=== PATIENT | female | born 1965 | race Caucasian/White ===

== ENCOUNTER → 2017-10-10 | Outpatient (CLI) | payer MEDICAID ==
[2017-10-10 14:01] LABS: Basophils # (A) 0.1 k/uL (0-0.2); Basophils % (A) 1 %; Eosinophils # (A) 0.2 k/uL (0-0.7); Eosinophils % (A) 2 %; HCT 44.6 % (34.0-46.0); HGB 14.6 gm/dL (11.4-16.0); Lymphocytes # (A) 1.6 k/uL (1.0-4.8); Lymphocytes % (A) 22 %; MCH 28.6 pg (25.0-35.0); MCHC 32.8 g/dL (31.0-37.0); MCV 87.2 fL (80.0-100.0); Mean Platelet Volume 7.3; Monocytes # (A) 0.3 k/uL (0-1.0); Monocytes % (A) 4 %; Neutrophils # (A) 5.1 k/uL (1.3-7.7); Neutrophils % (A) 70 %; Platelet Count 218 k/uL (150-450); RBC 5.11 m/uL (3.80-5.40); RDW 14.6 % (11.5-15.5); WBC 7.3 k/uL (3.8-10.6)
[2017-10-10 14:39] LABS: ALT 31 U/L (9-52); AST 19 U/L (14-36); Albumin 4.6 g/dL (3.5-5.0); Alkaline Phosphatase 72 U/L (38-126); Anion Gap 11 mmol/L; Blood Urea Nitrogen 17 mg/dL (7-17); Carbon Dioxide 32 mmol/L (22-30); Chloride 100 mmol/L (98-107); Glucose 91 mg/dL (74-99); Potassium 3.7 mmol/L (3.5-5.1); Sodium 143 mmol/L (137-145); Total Bilirubin 0.4 mg/dL (0.2-1.3); Total Protein 7.6 g/dL (6.3-8.2)
[2017-10-10 14:52] LABS: T4, Free (Free Thyroxine) 1.84 ng/dL (0.78-2.19)
--- NOTE | 2017-10-14 08:56 | MM ---
Reason for exam: screening (asymptomatic). Last mammogram was performed 1 year and 1 month ago. History: Family history of breast cancer in maternal aunt at age 71. Taking hormonal contraceptives for 14 years beginning at age 16. Physical Findings: A clinical breast exam by your physician is recommended on an annual basis and results should be correlated with mammographic findings. MG Screening Mammo w CAD Bilateral CC and MLO view(s) were taken. Prior study comparison: August 27, 2016, bilateral MG screening mammo w CAD. August 22, 2015, bilateral MG screening mammo w CAD. There are scattered fibroglandular densities. There is chronic nodularity in the left breast. No significant changes when compared with prior studies. ASSESSMENT: Negative, BI-RAD 1 RECOMMENDATION: Routine screening mammogram of both breasts in 1 year.
== END | disposition home or self-care (01) ==
LOC: RADMAMWWP 13:21
PROVIDERS: ATTEND Family Medicine
DX: Z12.31 Encounter for screening mammogram for malignant neoplasm of breast (principal); E03.9 Hypothyroidism, unspecified
CPT/HCPCS: 36415; 77067; 80053; 84439; 84443; 85025

== ENCOUNTER → 2018-02-04 | Outpatient (CLI) | payer MEDICAID ==
[2018-02-04 10:54] LABS: T4, Free (Free Thyroxine) 1.39 ng/dL (0.78-2.19)
== END | disposition home or self-care (01) ==
LOC: LABWHC1 09:41
PROVIDERS: ATTEND Family Medicine
DX: E03.9 Hypothyroidism, unspecified (principal)
CPT/HCPCS: 36415; 84439; 84443

== ENCOUNTER → 2018-03-10 | Outpatient (CLI) | payer MEDICAID ==
[2018-03-10 12:09] LABS: T4, Free (Free Thyroxine) 1.76 ng/dL (0.78-2.19)
== END | disposition home or self-care (01) ==
LOC: LABWHC1 09:16
PROVIDERS: ATTEND Family Medicine
DX: E03.9 Hypothyroidism, unspecified (principal)
CPT/HCPCS: 36415; 84439; 84443

== ENCOUNTER → 2018-12-12 | Outpatient (CLI) | payer MEDICAID ==
[2018-12-12 16:33] LABS: Albumin 4.7 g/dL (3.80-4.90); Albumin/Globulin Ratio 1.96 (1.60-3.17); Anion Gap 4.3 mmol/L (4.00-12.00); Carbon Dioxide 31.7 mmol/L (21.6-31.8); Globulin 2.4 g/dL (1.6-3.3); LDL Cholesterol,Calculated 70.2 mg/dL (0.0-131.0); Potassium 4.2 mmol/L (3.5-5.5); Total Bilirubin 0.4 mg/dL (0.3-1.2); Total Protein 7.1 g/dL (6.2-8.2); VLDL Calculation 14.8 mg/dL (5.00-40.00)
[2018-12-12 16:41] LABS: T4, Free (Free Thyroxine) 1.5 ng/dL (0.80-1.80)
== END | disposition home or self-care (01) ==
LOC: LABWHC1 10:44
PROVIDERS: ATTEND Family Medicine
DX: E03.9 Hypothyroidism, unspecified (principal); E78.00 Pure hypercholesterolemia, unspecified; I10 Essential (primary) hypertension
CPT/HCPCS: 36415; 80053; 80061; 84439; 84443

== ENCOUNTER → 2019-01-05 | Outpatient (CLI) | payer MEDICAID ==
--- NOTE | 2019-01-06 11:37 | MM ---
Reason for exam: screening (asymptomatic). Last mammogram was performed 1 year and 3 months ago. History: Family history of breast cancer in maternal aunt at age 71. Taking hormonal contraceptives for 14 years beginning at age 16. Physical Findings: A clinical breast exam by your physician is recommended on an annual basis and results should be correlated with mammographic findings. MG Screening Mammo w CAD Bilateral CC and MLO view(s) were taken. Prior study comparison: October 10, 2017, bilateral MG screening mammo w CAD. August 27, 2016, bilateral MG screening mammo w CAD. The breast tissue is heterogeneously dense. This may lower the sensitivity of mammography. There is no discrete abnormality. ASSESSMENT: Negative, BI-RAD 1 RECOMMENDATION: Routine screening mammogram of both breasts in 1 year.
== END ==
LOC: RADMAMWWP 09:23
PROVIDERS: ATTEND Family Medicine
DX: Z12.31 Encounter for screening mammogram for malignant neoplasm of breast (principal)
CPT/HCPCS: 77067

== ENCOUNTER → 2019-01-16 | Outpatient (CLI) | payer MEDICAID ==
[2019-01-16 17:11] LABS: T4, Free (Free Thyroxine) 1.1 ng/dL (0.80-1.80)
== END | disposition home or self-care (01) ==
LOC: LABWHC1 10:00
PROVIDERS: ATTEND Family Medicine
DX: E03.9 Hypothyroidism, unspecified (principal)
CPT/HCPCS: 36415; 84439; 84443

== ENCOUNTER → 2020-03-06 | Outpatient (CLI) | payer MEDICAID ==
[2020-03-06 17:54] LABS: African American GFR (CKD) 95.5 (60.0-200.0); Albumin 4.7 g/dL (3.80-4.90); Albumin/Globulin Ratio 2.04 (1.60-3.17); Anion Gap 8.8 mmol/L (4.00-12.00); Calcium 9.5 mg/dL (8.7-10.3); Carbon Dioxide 26.2 mmol/L (21.6-31.8); Chol/HDL Ratio 3.18; Globulin 2.3 g/dL (1.6-3.3); LDL Cholesterol,Calculated 106.8 mg/dL (0.0-131.0); Non-African American GFR(CKD) 82.4 (60.0-200.0); Total Bilirubin 0.5 mg/dL (0.3-1.2); VLDL Calculation 28.2 mg/dL (5.00-40.00)
[2020-03-06 18:02] LABS: T4, Free (Free Thyroxine) 1.4 ng/dL (0.80-1.80)
== END | disposition home or self-care (01) ==
LOC: LABWHC1 10:32
PROVIDERS: ATTEND Family Medicine
DX: Z00.00 Encounter for general adult medical examination without abnormal findings (principal); I10 Essential (primary) hypertension; E03.9 Hypothyroidism, unspecified; D55.9 Anemia due to enzyme disorder, unspecified
CPT/HCPCS: 36415; 80053; 80061; 82306; 84439; 84443

== ENCOUNTER 2020-04-25 19:17 | Observation (INO) | payer MEDICAID ==
[2020-04-25] MEDS ORDERED: MORPHINE SULFATE 4 MG/ML SYRINGE IV STA (19:43)
[2020-04-25] MEDS ORDERED: ASPIRIN 81 MG PO STA (19:43)
[2020-04-25] MEDS ORDERED: methylPREDNISolone SOD SUCCI 125 MG/2 ML VIAL IV STA (19:51)
[2020-04-25] MEDS ORDERED: FAMOTIDINE 20 MG/2 ML VIAL IV STA (19:51)
[2020-04-25] MEDS ORDERED: diphenhydrAMINE 50 MG/ML 1 ML VIAL IVP STA (19:51)
--- NOTE | 2020-04-25 19:51 | ED ---
General Adult HPI - General Chief complaint: Chest Pain Stated complaint: Chest Pain Time Seen by Provider: 04/25/20 19:36 Source: patient, RN notes reviewed Mode of arrival: ambulatory Limitations: no limitations - History of Present Illness Initial comments: Patient is a pleasant 54-year-old female presenting to the emergency Department with complaints of chest discomfort. Onset of symptoms was around 2 hours ago. Discomfort is 3 or 4/10. Discomfort feels somewhat sharp. Discomfort is underneath the left breast and does also involve the back. Discomfort is somewhat positional. No dyspnea. Patient was mildly nauseated earlier. No diaphoresis. Patient has no history of similar symptoms previously. No leg pain or leg swelling. Patient was sitting at her desk with onset of symptoms - Related Data Allergies Allergy/AdvReac Type Severity Reaction Status Date / Time shellfish derived [Shellfish] Allergy Anaphylaxis Verified 04/25/20 19:31 Review of Systems ROS Statement: Those systems with pertinent positive or pertinent negative responses have been documented in the HPI. ROS Other: All systems not noted in ROS Statement are negative. Constitutional: Denies: fever Eyes: Denies: eye pain ENT: Denies: ear pain Respiratory: Denies: cough, dyspnea Cardiovascular: Reports: as per HPI, chest pain Endocrine: Denies: fatigue Gastrointestinal: Reports: as per HPI, nausea. Denies: abdominal pain, vomiting Genitourinary: Denies: dysuria Musculoskeletal: Reports: back pain Skin: Denies: rash Neurological: Denies: weakness Past Medical History Past Medical History: Fibromyalgia History of Any Multi-Drug Resistant Organisms: None Reported Past Surgical History: No Surgical Hx Reported Past Psychological History: No Psychological Hx Reported Smoking Status: Current every day smoker Past Alcohol Use History: Daily Past Drug Use History: None Reported General Exam Limitations: no limitations General appearance: alert, in no apparent distress Head exam: Present: normocephalic Eye exam: Present: normal appearance Neck exam: Present: normal inspection Respiratory exam: Present: normal lung sounds bilaterally. Absent: chest wall tenderness Cardiovascular Exam: Present: regular rate, normal rhythm Expanded Peripheral pulses: 2+: Radial (R), Radial (L), Posterior Tibialis (R), Posterior Tibialis (L), Dorsalis Pedis (R), Dorsalis Pedis (L) GI/Abdominal exam: Present: soft. Absent: distended, tenderness Extremities exam: Present: normal inspection. Absent: pedal edema, calf tenderness Back exam: Present: tenderness (Mild tenderness left parathoracic region) Neurological exam: Present: alert. Absent: motor sensory deficit Psychiatric exam: Present: normal affect, normal mood Skin exam: Present: normal color Course Vital Signs 04/25/20 04/25/20 04/25/20 19:29 19:50 20:00 Temperature 98.6 F Pulse Rate 101 H 100 Respiratory 20 20 15 Rate Blood Pressure 127/76 121/70 121/70 O2 Sat by Pulse 98 98 Oximetry 04/25/20 20:10 Temperature Pulse Rate 91 Respiratory 19 Rate Blood Pressure 128/82 O2 Sat by Pulse 97 Oximetry EKG Findings - EKG Comments: EKG Findings:: Normal sinus rhythm 91. PA 160. QRS 86. QT 356. QTc 437. Normal axis. Normal QRS. No acute ST change. Medical Decision Making - Medical Decision Making Patient reevaluated. Patient and family updated. Case discussed with Dr. Alvarez, who will admit covered for Dr. Lunsford. He is aware of computed tomography scan pending. - Lab Data Result diagrams: 04/25/20 19:47 04/25/20 19:47 Lab Results 04/25/20 04/25/20 04/25/20 Range/Units 19:47 19:47 19:47 WBC 8.1 (3.8-10.6) k/uL RBC 4.92 (3.80-5.40) m/uL Hgb 15.0 (11.4-16.0) gm/dL Hct 43.2 (34.0-46.0) % MCV 87.7 (80.0-100.0) fL MCH 30.4 (25.0-35.0) pg MCHC 34.6 (31.0-37.0) g/dL RDW 13.6 (11.5-15.5) % Plt Count 218 (150-450) k/uL Neutrophils % 63 % Lymphocytes % 25 % Monocytes % 6 % Eosinophils % 4 % Basophils % 1 % Neutrophils # 5.1 (1.3-7.7) k/uL Lymphocytes # 2.1 (1.0-4.8) k/uL Monocytes # 0.5 (0-1.0) k/uL Eosinophils # 0.3 (0-0.7) k/uL Basophils # 0.0 (0-0.2) k/uL PT 9.6 (9.0-12.0) sec INR 0.9 (<1.2) APTT 23.8 (22.0-30.0) sec Sodium 138 (137-145) mmol/L Potassium 3.3 L (3.5-5.1) mmol/L Chloride 101 (98-107) mmol/L Carbon Dioxide 26 (22-30) mmol/L Anion Gap 11 mmol/L BUN 18 H (7-17) mg/dL Creatinine 0.79 (0.52-1.04) mg/dL Est GFR (CKD-EPI)AfAm >90 (>60 ml/min/1.73 sqM) Est GFR (CKD-EPI)NonAf 85 (>60 ml/min/1.73 sqM) Glucose 102 H (74-99) mg/dL Calcium 9.6 (8.4-10.2) mg/dL Magnesium 2.1 (1.6-2.3) mg/dL Total Bilirubin 0.3 (0.2-1.3) mg/dL AST 24 (14-36) U/L ALT 14 (4-34) U/L Alkaline Phosphatase 113 (38-126) U/L Troponin I (0.000-0.034) ng/mL Total Protein 7.9 (6.3-8.2) g/dL Albumin 4.9 (3.5-5.0) g/dL 04/25/20 Range/Units 19:47 WBC (3.8-10.6) k/uL RBC (3.80-5.40) m/uL Hgb (11.4-16.0) gm/dL Hct (34.0-46.0) % MCV (80.0-100.0) fL MCH (25.0-35.0) pg MCHC (31.0-37.0) g/dL RDW (11.5-15.5) % Plt Count (150-450) k/uL Neutrophils % % Lymphocytes % % Monocytes % % Eosinophils % % Basophils % % Neutrophils # (1.3-7.7) k/uL Lymphocytes # (1.0-4.8) k/uL Monocytes # (0-1.0) k/uL Eosinophils # (0-0.7) k/uL Basophils # (0-0.2) k/uL PT (9.0-12.0) sec INR (<1.2) APTT (22.0-30.0) sec Sodium (137-145) mmol/L Potassium (3.5-5.1) mmol/L Chloride (98-107) mmol/L Carbon Dioxide (22-30) mmol/L Anion Gap mmol/L BUN (7-17) mg/dL Creatinine (0.52-1.04) mg/dL Est GFR (CKD-EPI)AfAm (>60 ml/min/1.73 sqM) Est GFR (CKD-EPI)NonAf (>60 ml/min/1.73 sqM) Glucose (74-99) mg/dL Calcium (8.4-10.2) mg/dL Magnesium (1.6-2.3) mg/dL Total Bilirubin (0.2-1.3) mg/dL AST (14-36) U/L ALT (4-34) U/L Alkaline Phosphatase (38-126) U/L Troponin I <0.012 (0.000-0.034) ng/mL Total Protein (6.3-8.2) g/dL Albumin (3.5-5.0) g/dL - Radiology Data Radiology results: image reviewed (Chest x-ray shows no acute process) Disposition Clinical Impression: Chest pain Disposition: ADMITTED IP TO THIS HOSP Is patient prescribed a controlled substance at d/c from ED?: No Referrals: Marta Bello MD [Primary Care Provider] - 1-2 days Decision Time: 21:07
[2020-04-25 20:13] LABS: Basophils % (A) 1 %; Eosinophils # (A) 0.3 k/uL (0-0.7); Eosinophils % (A) 4 %; HCT 43.2 % (34.0-46.0); Lymphocytes # (A) 2.1 k/uL (1.0-4.8); Lymphocytes % (A) 25 %; MCH 30.4 pg (25.0-35.0); MCHC 34.6 g/dL (31.0-37.0); MCV 87.7 fL (80.0-100.0); Mean Platelet Volume 7.5; Monocytes # (A) 0.5 k/uL (0-1.0); Monocytes % (A) 6 %; Neutrophils # (A) 5.1 k/uL (1.3-7.7); Neutrophils % (A) 63 %; Platelet Count 218 k/uL (150-450); RBC 4.92 m/uL (3.80-5.40); RDW 13.6 % (11.5-15.5); WBC 8.1 k/uL (3.8-10.6)
[2020-04-25 20:20] LABS: INR 0.9 (<1.2); Partial Thromboplastin Time 23.8 sec (22.0-30.0); Prothrombin Time 9.6 sec (9.0-12.0)
[2020-04-25 20:29] LABS: ALT 14 U/L (4-34); AST 24 U/L (14-36); African American GFR (CKD) >90 (>60 ml/min/1.73 sqM); Albumin 4.9 g/dL (3.5-5.0); Alkaline Phosphatase 113 U/L (38-126); Anion Gap 11 mmol/L; Blood Urea Nitrogen 18 mg/dL (7-17); Calcium 9.6 mg/dL (8.4-10.2); Carbon Dioxide 26 mmol/L (22-30); Chloride 101 mmol/L (98-107); Glucose 102 mg/dL (74-99); Magnesium 2.1 mg/dL (1.6-2.3); Non-African American GFR(CKD) 85 (>60 ml/min/1.73 sqM); Potassium 3.3 mmol/L (3.5-5.1); Sodium 138 mmol/L (137-145); Total Bilirubin 0.3 mg/dL (0.2-1.3); Total Protein 7.9 g/dL (6.3-8.2)
[2020-04-25] MEDS ORDERED: POTASSIUM CHLORIDE ER 20 MEQ TAB.ER PO STA (20:30)
--- NOTE | 2020-04-25 21:00 | XR ---
EXAMINATION TYPE: XR chest 2V DATE OF EXAM: 04/25/2020 CLINICAL HISTORY: Chest pain for 2 hours TECHNIQUE: Frontal and lateral views of the chest are obtained. COMPARISON: None FINDINGS: The cardiomediastinal silhouette is within normal limits for size. Pulmonary vasculature i s normal. There is no focal air space opacity, pleural effusion, or pneumothorax seen. The osseous st ructures are intact. IMPRESSION: No acute cardiopulmonary process.
[2020-04-25] MEDS ORDERED: NITROGLYCERIN SL TABS 0.4 MG TAB SUBLINGUAL PRN (21:07)
--- NOTE | 2020-04-25 22:10 | CT ---
EXAMINATION TYPE: CT angio chest DATE OF EXAM: 04/25/2020 COMPARISON: None HISTORY: Chest pain and left shoulder pain. CT DLP: 980.6 mGycm Automated exposure control for dose reduction was used. CONTRAST: Performed without and with IV Contrast, patient injected with 100ml mL of Isovue 370. There are 3-D post processed images. The lungs are clear of consolidation. There is mild interstitial infiltrate in the posterior lower elsi ng connors. There is no evidence of a pulmonary mass. There is no pleural effusion. There is no perica rdial effusion. There is no mediastinal adenopathy. There are no hilar masses. Heart size is fairly n ormal. Facet aorta is intact. The ascending aorta measures 3.2 cm. There is no aneurysm or dissection. There is normal contrast opacification of the pulmonary arteries. There are no filling defects. Thora cic spine is intact. The ribs appear intact. IMPRESSION: No evidence of pulmonary embolism. Minimal lower lung field pulmonary interstitial infiltrates.
[2020-04-25] MEDS ORDERED: PREGABALIN 75 MG CAP PO PRN (23:16)
[2020-04-25] MEDS ORDERED: ATORVASTATIN 10 MG TAB PO SCH (23:30)
--- NOTE | 2020-04-26 00:20 | P.HPIM ---
History of Present Illness H&P Date: 04/25/20 Chief Complaint: chest pain 54 year old female with history of hypothyroid , fibromyalgia , hypertesion , hyperlipidemia patient comes in with sudden onset chest pain that started around 6 pm mainly left sided, while she was sitting working at her office at work. not associated with any nausea , vomting, SOB, palpitations, or dizziness. she describes the pain as sharp , left sided non radiating, 8/10 in severity. she drove back home, and pain was still there took an aspirin and then decided to call 911 as she grew concerned it could be the heart. she adds, that she experienced similar pain many years ago and had a negative stress test at that time around 2008 she does not recall any recent injury or increase physical activity ,. she denies any URI symptoms in the ed her pain improved with pain meds , she had a CTA of the chest which was negative for PE, seh denies any recent traveling or immobility . she denies any familly history of premature CAD. she is a smoker and hypertensive with hyperlipidemia EKG showed NSR trops were negative blood work unremarkable Review of Systems Pertinent positives as noted in HPI. All other systems were reviewed and are negative Past Medical History Past Medical History: Fibromyalgia History of Any Multi-Drug Resistant Organisms: None Reported Past Surgical History: No Surgical Hx Reported Past Psychological History: No Psychological Hx Reported Smoking Status: Current every day smoker Past Alcohol Use History: Daily Past Drug Use History: None Reported Medications and Allergies Home Medications Medication Instructions Recorded Confirmed Type Atorvastatin Calcium [Lipitor] 10 mg PO HS 04/25/20 04/25/20 History Cholecalciferol [Vitamin D3 (25 5,000 unit PO DAILY 04/25/20 04/25/20 History Mcg = 1000 Iu)] EPINEPHrine (Auto Inject) [Epipen] 0.3 mg IM ONCE PRN 04/25/20 04/25/20 History Levothyroxine Sodium [Synthroid] 112 mcg PO DAILY 04/25/20 04/25/20 History Metaxalone [Skelaxin] 800 mg PO TID PRN 04/25/20 04/25/20 History Milnacipran HCl [Savella] 50 mg PO BID 04/25/20 04/25/20 History Pregabalin [Lyrica] 75 mg PO TID PRN 04/25/20 04/25/20 History SUMAtriptan SUCCINATE [Imitrex] 100 mg PO Q2H PRN 04/25/20 04/25/20 History armodafiniL [Nuvigil] 75 mg PO QAM 04/25/20 04/25/20 History hydroCHLOROthiazide [Hydrodiuril] 25 mg PO DAILY 04/25/20 04/25/20 History Allergies Allergy/AdvReac Type Severity Reaction Status Date / Time shellfish derived [Shellfish] Allergy Anaphylaxis Verified 04/25/20 21:16 Physical Exam Vitals: Vital Signs Temp Pulse Resp BP Pulse Ox 04/25/20 22:40 98.0 F 89 16 113/67 97 04/25/20 20:10 91 19 128/82 97 04/25/20 20:00 15 121/70 04/25/20 19:50 100 20 121/70 98 04/25/20 19:29 98.6 F 101 H 20 127/76 98 Intake and Output 04/25/20 04/25/20 04/26/20 14:59 22:59 06:59 Other: Weight 81.647 kg Constitutional: No acute distress, conversant, pleasant Eyes: Anicteric sclerae, moist conjunctiva, Pupils equal round reactive to light ENMT: NC/AT Oropharynx clear, no erythema, or exudates Neck: Supple, FROM, no masses, or JVD No carotid bruits No thyromegaly Lungs: Clear to auscultation Clear to percussion Normal respiratory effort, no accessory muscle use Cardiovascular: Heart regular in rate and rhythm, No murmurs, gallops, or rubs No peripheral edema Abdominal: Soft Nontender, no guarding, rebound or rigidity Abdomen moving with respiration Normoactive bowel sounds No hepatomegaly, No splenomegaly No palpable mass No abdominal wall hernia noted Skin: Normal temperature, tone, texture, turgor No induration No subcutaneous nodules No rash, lesions No ulcers Extremities: No digital cyanosis No clubbing Pedal pulses intact and symmetrical Radial pulses intact and symmetrical No calf tenderness Psychiatric: Alert and oriented to person, place and time Appropriate affect fair judgement Neuro Muscles Strength 5/5 in all 4 extremities Sensation to light touch grossly present throughout Cranial nerves II-XII grossly intact No focal sensory deficits Lymphatics: no palpable cervical or supraclavicular , or inguinal lymph nodes Results CBC & Chem 7: 04/25/20 19:47 04/25/20 19:47 Labs: Abnormal Lab Results - Last 24 Hours (Table) 04/25/20 Range/Units 19:47 Potassium 3.3 L (3.5-5.1) mmol/L BUN 18 H (7-17) mg/dL Glucose 102 H (74-99) mg/dL Assessment and Plan Assessment: atypical chest pain hypertension hyperlipidemia plan IVF hydration , patient had CTA of the chest negative 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
[2020-04-26] MEDS: NITROGLYCERIN OINT 1 INCH/GM PACKET TOPICAL SCH ×2 (00:49→05:29)
[2020-04-26 02:05] LABS: Cholesterol 184 mg/dL (<200); HDL Cholesterol 68 mg/dL (40-60); LDL Cholesterol,Calculated 99 mg/dL (0-99); Triglycerides 86 mg/dL (<150)
[2020-04-26] MEDS ORDERED: LEVOTHYROXINE 112 MCG TAB PO SCH (06:30)
[2020-04-26] MEDS ORDERED: HEPARIN SODIUM,PORCINE 5,000 UNIT/ML 1 ML VIAL SQ SCH (08:00)
[2020-04-26 08:47] VITALS: BP 120/74; PULSE 88; RESP 16; TEMP 97.7
[2020-04-26] MEDS ORDERED: hydroCHLOROthiazide 25 MG TAB PO SCH (09:00)
[2020-04-26] MEDS ORDERED: ASPIRIN 325 MG TAB PO SCH (09:00)
[2020-04-26] MEDS ORDERED: ASPIRIN 81 MG PO SCH (09:00)
[2020-04-26 09:11] LABS: African American GFR (CKD) >90 (>60 ml/min/1.73 sqM); Anion Gap 8 mmol/L; Blood Urea Nitrogen 17 mg/dL (7-17); Calcium 9.7 mg/dL (8.4-10.2); Carbon Dioxide 25 mmol/L (22-30); Chloride 106 mmol/L (98-107); Glucose 139 mg/dL (74-99); Non-African American GFR(CKD) >90 (>60 ml/min/1.73 sqM); Potassium 3.8 mmol/L (3.5-5.1); Sodium 139 mmol/L (137-145)
--- NOTE | 2020-04-26 10:32 | P.CRDCN ---
History of Present Illness History of present illness: HISTORY OF PRESENTING ILLNESS This is a pleasant 54-year-old female past medical history significant for fibromyalgia, hypertension, dyslipidemia and chronic nicotine dependence. She denies prior history of coronary artery disease and does not follow regularly with a loan administrator for any reason. We have been asked to see in consultation for chest pain. She states yesterday she was sitting at her desk around 6 PM and she started feeling of discomfort in the left precordial region that radiated to the left scapula and mid back. The pain is exacerbated by movement of her left arm or shoulder. If she held her arm still and close to her chest her pain was improved. The symptoms lasted approximately 4 hours and ultimately subsided on their own with no specific alleviating factor. She denies associated shortness of breath, dizziness, palpitations, nausea, vomiting. DIAGNOSTICS EKG reveals Mechanism with no acute ST or T wave abnormalities noted. Chest xray negative for an acute cardiopulmonary process. CT angiogram negative for pulmonary embolism. Laboratory reviewed, CBC unremarkable, sodium 139, potassium on admission 3.3 after replacement 3.8, creatinine 0.69, magnesium 2.1, cardiac enzymes negative 3, LDL 99 and HDL 68. Current cardiac medications include hydrochlorothiazide 25 mg daily and atorvastatin 10 mg daily. REVIEW OF SYSTEMS At the time of my exam: CONSTITUTIONAL: Denies fever or chills. CARDIOVASCULAR: Denies chest pain, shortness of breath, orthopnea, PND or palpitations. RESPIRATORY: Denies cough. GASTROINTESTINAL: Denies abdominal pain, diarrhea, constipation, nausea or vomiting. MUSCULOSKELETAL: Denies myalgias. NEUROLOGIC: Denies numbness, tingling or weakness. ENDOCRINE: Denies fatigue, weight change, polydipsia or polyurina. GENITOURINARY: Denies burning, hematuria or urgency with micturation. HEMATOLOGIC: Denies history of anemia or bleeding. PHYSICAL EXAMINATION Blood pressure 131/75 heart rate 93 afebrile and maintaining oxygen saturation on room air. CONSTITUTIONAL: No apparent distress. HEENT: Head is normocephalic. Pupils are equal, round. Sclerae anicteric. Mucous membranes of the mouth are moist. No JVD. No carotid bruit. CHEST EXAMINATION: Lungs are clear to auscultation. No chest wall tenderness is noted on palpation or with deep breathing. HEART EXAMINATION: Regular rate and rhythm. S1, S2 heard. No murmurs, gallops or rub. ABDOMEN: Soft, nontender. Positive bowel sounds. EXTREMITIES: 2+ peripheral pulses, no lower extremity edema and no calf tenderness. NEUROLOGIC EXAMINATION: Patient is awake, alert and oriented x3. ASSESSMENT Chest pain, musculoskeletal in nature. An acute coronary event has been ruled out. Hypertension Dyslipidemia Chronic nicotine dependence Fibromyalgia PLAN An acute coronary event has been ruled out. Symptoms are related to musculoskeletal injury. Recommend NSAID pain relief for the next 2-3 days. We will provide a prescription for outpatient stress test n ext week. Thank you kindly for this consultation. Nurse Practitioner note has been reviewed, I agree with a documented findings and plan of care. Patient was seen and examined. Past Medical History Past Medical History: Fibromyalgia Additional Past Medical History / Comment(s): Hashimotos, migraines History of Any Multi-Drug Resistant Organisms: None Reported Past Surgical History: No Surgical Hx Reported Past Psychological History: No Psychological Hx Reported Smoking Status: Current every day smoker Past Alcohol Use History: Daily Past Drug Use History: None Reported - Past Family History Mother Family Medical History: Hyperlipidemia, Mitral Valve Prolapse (MVP), Thyroid Disorder Additional Family Medical History / Comment(s): hashimotos Father Family Medical History: Liver Disease Additional Family Medical History / Comment(s): of cirrhosis Medications and Allergies Home Medications Medication Instructions Recorded Confirmed Type Atorvastatin Calcium [Lipitor] 10 mg PO HS 04/25/20 04/25/20 History Cholecalciferol [Vitamin D3 (25 5,000 unit PO DAILY 04/25/20 04/25/20 History Mcg = 1000 Iu)] EPINEPHrine (Auto Inject) [Epipen] 0.3 mg IM ONCE PRN 04/25/20 04/25/20 History Levothyroxine Sodium [Synthroid] 112 mcg PO DAILY 04/25/20 04/25/20 History Metaxalone [Skelaxin] 800 mg PO TID PRN 04/25/20 04/25/20 History Milnacipran HCl [Savella] 50 mg PO BID 04/25/20 04/25/20 History Pregabalin [Lyrica] 75 mg PO TID PRN 04/25/20 04/25/20 History SUMAtriptan SUCCINATE [Imitrex] 100 mg PO Q2H PRN 07/28/20 07/28/20 History armodafiniL [Nuvigil] 75 mg PO QAM 04/25/20 04/25/20 History hydroCHLOROthiazide [Hydrodiuril] 25 mg PO DAILY 04/25/20 04/25/20 History Allergies Allergy/AdvReac Type Severity Reaction Status Date / Time shellfish derived [Shellfish] Allergy Anaphylaxis Verified 04/25/20 21:16 Physical Exam Vitals: Vital Signs Temp Pulse Pulse Resp BP BP BP 04/26/20 06:17 97.8 F 93 18 131/75 04/25/20 23:04 98.1 F 89 18 137/85 04/25/20 22:40 98.0 F 89 16 113/67 04/25/20 20:10 91 19 128/82 04/25/20 20:00 15 121/70 04/25/20 19:50 100 20 121/70 04/25/20 19:29 98.6 F 101 H 20 127/76 Pulse Ox 04/26/20 06:17 94 L 04/25/20 23:04 97 04/25/20 22:40 97 04/25/20 20:10 97 04/25/20 20:00 04/25/20 19:50 98 04/25/20 19:29 98 Intake and Output 04/25/20 04/26/20 04/26/20 22:59 06:59 14:59 Other: Voiding Method Toilet # Voids 1 1 Weight 81.647 kg 81.647 kg Results 04/25/20 19:47 04/26/20 08:32 Cardiac Enzymes 04/25/20 04/25/20 04/25/20 Range/Units 19:47 19:47 23:05 AST 24 (14-36) U/L Troponin I <0.012 <0.012 (0.000-0.034) ng/mL 04/26/20 Range/Units 01:39 AST (14-36) U/L Troponin I <0.012 (0.000-0.034) ng/mL Coagulation 04/25/20 Range/Units 19:47 PT 9.6 (9.0-12.0) sec APTT 23.8 (22.0-30.0) sec Lipids 04/26/20 Range/Units 01:39 Triglycerides 86 (<150) mg/dL Cholesterol 184 (<200) mg/dL HDL Cholesterol 68 H (40-60) mg/dL CBC 04/25/20 Range/Units 19:47 WBC 8.1 (3.8-10.6) k/uL RBC 4.92 (3.80-5.40) m/uL Hgb 15.0 (11.4-16.0) gm/dL Hct 43.2 (34.0-46.0) % Plt Count 218 (150-450) k/uL Comprehensive Metabolic Panel 04/25/20 Range/Units 19:47 Sodium 138 (137-145) mmol/L Potassium 3.3 L (3.5-5.1) mmol/L Chloride 101 (98-107) mmol/L Carbon Dioxide 26 (22-30) mmol/L BUN 18 H (7-17) mg/dL Creatinine 0.79 (0.52-1.04) mg/dL Glucose 102 H (74-99) mg/dL Calcium 9.6 (8.4-10.2) mg/dL AST 24 (14-36) U/L ALT 14 (4-34) U/L Alkaline Phosphatase 113 (38-126) U/L Total Protein 7.9 (6.3-8.2) g/dL Albumin 4.9 (3.5-5.0) g/dL Current Medications Generic Name Dose Route Start Last Admin Trade Name Freq PRN Reason Stop Dose Admin Aspirin 325 mg 04/26/20 09:00 Aspirin PO DAILY [facility] Atorvastatin Calcium 10 mg 04/25/20 23:30 04/26/20 05:29 Lipitor PO Not Given HS [facility] Heparin Sodium (Porcine) 5,000 unit 04/26/20 08:00 Heparin SQ Q8HR [facility] Hydrochlorothiazide 25 mg 04/26/20 09:00 Hydrodiuril PO DAILY [facility] Levothyroxine Sodium 112 mcg 04/26/20 06:30 04/26/20 06:59 Synthroid PO 112 mcg DAILY@0630 [facility] Administration Nitroglycerin 0.4 mg 04/25/20 21:07 Nitrostat SUBLINGUAL Q5M PRN Chest Pain Nitroglycerin 1 inch 04/26/20 00:00 04/26/20 05:29 Nitro-Bid Oint TOPICAL Not Given Q6HR [facility] Milnacipran Hcl [ 50 mg 04/25/20 23:30 04/26/20 02:47 Savella] 50 Mg PO Not Given BID ERIBERTO Pregabalin 75 mg 04/25/20 23:16 Lyrica PO TID PRN nerve pain Intake and Output 04/25/20 04/26/20 04/26/20 22:59 06:59 14:59 Other: Voiding Method Toilet # Voids 1 1 Weight 81.647 kg 81.647 kg 04/25/20 19:47 04/25/20 19:47
--- NOTE | 2020-04-26 12:03 | ECHOF ---
Referral Reason:cp MEASUREMENTS -------- HEIGHT: 157.5 cm WEIGHT: 81.7 kg BP: 131/75 RVIDd: 2.8 cm (< 3.3) IVSd: 1.3 cm (0.6 - 1.1) LVIDd: 3.5 cm (3.9 - 5.3) LVPWd: 1.5 cm (0.6 - 1.1) IVSs: 2.0 cm LVIDs: 2.6 cm LVPWs: 1.5 cm LAESV Index (A-L): 27.62 ml/m Ao Diam: 3.2 cm (2.0 - 3.7) AV Cusp: 1.9 cm (1.5 - 2.6) MV EXCURSION: 10.022 mm (> 18.000) MV EF SLOPE: 49 mm/s (70 - 150) EPSS: 0.4 cm MV E Bry: 0.77 m/s MV DecT: 141 ms MV A Bry: 1.26 m/s MV E/A Ratio: 0.61 RAP: 5.00 mmHg RVSP: 27.81 mmHg FINDINGS -------- Sinus rhythm. This was a technically adequate study. The left ventricular size is normal. There is mild concentric left ventricular hypertrophy. Overa ll left ventricular systolic function is normal with, an EF between 55 - 60 %. The diastolic fillin g pattern is normal for the age of the patient 10.51. The right ventricle is normal in size. Normal LA size by volume 22+/-6 ml/m2. The right atrial size is normal. Interatrial and interventricular septum intact. There is no evidence of aortic regurgitation. There is no evidence of aortic stenosis. Mild mitral regurgitation is present. Mild tricuspid regurgitation present. There is no evidence of pulmonary hypertension. The right v entricular systolic pressure, as measured by Doppler, is 27.81mmHg. There is no pulmonic regurgitation present. The aortic root size is normal. Normal inferior vena cava with normal inspiratory collapse consistent with estimated right atrial pre ssure of 5 mmHg. There is no pericardial effusion. CONCLUSIONS -------- 1. The left ventricular size is normal. 2. There is mild concentric left ventricular hypertrophy. 3. Overall left ventricular systolic function is normal with, an EF between 55 - 60 %. 4. The diastolic filling pattern is normal for the age of the patient 10.51 5. Mild mitral regurgitation is present. 6. Mild tricuspid regurgitation present. MECHANICAL INTERN: Ines Barrera RDCS
--- NOTE | 2020-04-26 13:40 | P.DS ---
Providers Date of admission: 04/25/20 21:08 Expected date of discharge: 04/26/20 Attending physician: Jaquelin Urbina MD Consults: 04/25/20 21:08 Consult Physician Urgent Consulting Provider: Lata Bond Consult Reason/Comments: cp Do you want consulting provider notified?: Yes Primary care physician: [facility] Course: 54-year-old female with PMH of hypothyroidism, fibromyalgia, hypertension and dyslipidemia presented to the ED for left-sided chest pain while she was sitting working at her office at work. Chest pain was left-sided radiating to scapula. When her symptoms persisted this prompted the patient to come to the ED. In the ED, her vital signs are stable. CMP showed potassium of 3.3. CTA chest showed no PE and minimal lower lung field interstitial infiltrates. Chest x-ray was negative. Patient was admitted for cardiology evaluation and for management of her chest pain. Cardiology was consulted. Cardiology recommended outpatient stress test. Echocardiogram was obtained which showed EF 55-60% with mild concentric LVH. Troponin was less than 0.0123 with EKG showing normal sinus rhythm. Acute coronary syndrome was ruled out. Patient was seen and examined. No acute events overnight. at bedside. Patient reports complete resolution of her chest pain. States that her pain was exacerbated with movement of her left shoulder. Describes the pain as sharp and stabbing. She denies any shortness of breath or palpitations. No nausea or vomiting. No fever or chills. General: [non toxic], [no distress], [appears at stated age] Derm: [warm], [dry] Head: [atraumatic], [normocephalic], [symmetric] Eyes: [EOMI], [no lid lag], [anicteric sclera] Mouth: [no lip lesion], [mucus membranes moist] Cardiovascular: [S1S2 reg], [no murmur], [positive posterior tibial pulse bilateral], Lungs: [CTA bilateral], [no rhonchi, no rales] , [no accessory muscle use] Abdominal: [soft], [ nontender to palpation], [no guarding], [no appreciable organomegaly] Ext: [no gross muscle atrophy], [no edema], [no contractures] Neuro: [ CN II-XI grossly intact], [no focal neuro deficits] Psych: [Alert], [oriented], [appropriate affect] Chest pain, likely musculoskeletal in nature Hypokalemia Hypertension Dyslipidemia Hypothyroidism Fibromyalgia Troponins have been cycled and acute coronary syndrome is ruled out. Echocardiogram is described as above. Cardiology has been consulted and recommends outpatient stress test. Her potassium is being replaced via protocol and repeat is within normal limits. Her blood pressure has been relatively under control with hydrochlorothiazide. She will be continued on aspirin and Lipitor until her stress test. Synthroid will be restarted for history of hypothyroidism. Her fibromyalgia is well controlled with Lyrica, and Milnacipran as needed. Patient advised to follow-up with her PCP within 3 days of discharge. Patient advised to follow-up with cardiology within 1 week of discharge. Patient advised to follow-up results of stress test during her cardiology appointment. Patient verbalized understanding of the plan. Pertinent Studies: Chest x-ray, chest CTA, echocardiogram Patient Condition at Discharge: Stable Plan - Discharge Summary New Discharge Prescriptions: New Aspirin 81 mg PO DAILY #30 chew Continue Cholecalciferol [Vitamin D3 (25 Mcg = 1000 Iu)] 5,000 unit PO DAILY Atorvastatin Calcium [Lipitor] 10 mg PO HS hydroCHLOROthiazide [Hydrodiuril] 25 mg PO DAILY Levothyroxine Sodium [Synthroid] 112 mcg PO DAILY EPINEPHrine (Auto Inject) [Epipen] 0.3 mg IM ONCE PRN PRN Reason: Anaphylaxis Pregabalin [Lyrica] 75 mg PO TID PRN PRN Reason: nerve pain Milnacipran HCl [Savella] 50 mg PO BID Metaxalone [Skelaxin] 800 mg PO TID PRN PRN Reason: Pain armodafiniL [Nuvigil] 75 mg PO QAM SUMAtriptan SUCCINATE [Imitrex] 100 mg PO Q2H PRN PRN Reason: Migraine Headache Discharge Medication List Atorvastatin Calcium [Lipitor] 10 mg PO HS 04/25/20 [History] Cholecalciferol [Vitamin D3 (25 Mcg = 1000 Iu)] 5,000 unit PO DAILY 04/25/20 [History] EPINEPHrine (Auto Inject) [Epipen] 0.3 mg IM ONCE PRN 04/25/20 [History] Levothyroxine Sodium [Synthroid] 112 mcg PO DAILY 04/25/20 [History] Metaxalone [Skelaxin] 800 mg PO TID PRN 04/25/20 [History] Milnacipran HCl [Savella] 50 mg PO BID 04/25/20 [History] Pregabalin [Lyrica] 75 mg PO TID PRN 04/25/20 [History] SUMAtriptan SUCCINATE [Imitrex] 100 mg PO Q2H PRN 04/25/20 [History] armodafiniL [Nuvigil] 75 mg PO QAM 04/25/20 [History] hydroCHLOROthiazide [Hydrodiuril] 25 mg PO DAILY 04/25/20 [History] Aspirin 81 mg PO DAILY #30 chew 04/26/20 [Rx] Follow up Appointment(s)/Referral(s): Rody Feldman MD [STAFF PHYSICIAN] - 1 Week Marta Bello MD [Primary Care Provider] - 1-2 days Patient Instructions/Handouts: Stress Echocardiogram (GEN) Activity/Diet/Wound Care/Special Instructions: Diet: Cardiac Follow-up PCP within 3 days of discharge. Obtain stress test in the outpatient setting. Follow-up with cardiology within 1 week of discharge. Follow-up with cardiology for the results of your stress test. Take all medications as advised. Come back to the ED or call 911 for worsening chest pain, shortness of breath, palpitations or dizziness. Discharge Disposition: HOME SELF-CARE
== END 2020-04-26 14:27 | disposition home or self-care (01) ==
LOC: EC 19:17 → 3NCARDOBS 21:08
PROVIDERS: ADMIT Internal Medicine; ATTEND Internal Medicine
DX: R07.9 Chest pain, unspecified (principal); E06.3 Autoimmune thyroiditis; E78.5 Hyperlipidemia, unspecified; E87.6 Hypokalemia; F17.200 Nicotine dependence, unspecified, uncomplicated; I10 Essential (primary) hypertension; M79.7 Fibromyalgia; Z79.82 Long term (current) use of aspirin; Z79.890 Hormone replacement therapy; Z79.899 Other long term (current) drug therapy; Z91.013 Allergy to seafood; Z03.818 Encounter for observation for suspected exposure to other biological agents ruled out
CPT/HCPCS: 93005 ×2; 96374; 96375; 99285; 36415; 93306; 80061; 80053; 80048; 83735; 84484 ×2; 85025; 85610; 85730; 71046; 71275; G0378 ×2; U0003; J1200; J2930; Q9967

== ENCOUNTER → 2020-05-09 | Outpatient (CLI) | payer MEDICAID ==
--- NOTE | 2020-05-09 14:12 | ECHOS ---
STRESS ECHOCARDIOGRAM LUMASON: - Vial INDICATIONS: Chest pain MEDICATIONS: BASELINE HEART RATE: 95 BASELINE BLOOD PRESSURE: 108/77 MAXIMUM HEART RATE: 157 MAXIMUM BLOOD PRESSURE: 141/73 85% MPHR: 139 100% MPHR: 164 METS: 7.1 MAXIMUM STAGE REACHED: 2 TOTAL EXERCISE TIME: 6:00 CLINICAL INFORMATION: Baseline EKG shows sinus rhythm, normal axis, normal intervals. Patient exercised on Pratik protocol for a total of 6 minutes achieving 7 METS, 85% of predicted maximal heart rate without chest pain or diagnostic ST-segment depression. Baseline echo shows normal left ventricular size wall motion, systolic function. Postexercise, there is normal hyperdynamic response of all segments of myocardium noted. CONCLUSION: 1. Average exercise tolerance. 2. Negative stress test by EKG criteria. 3. Negative stress echo. MMODL / IJN: [id number] /
== END | disposition home or self-care (01) ==
LOC: RADNMMAIN 09:07
PROVIDERS: ATTEND Nurse Practitioner
DX: R07.9 Chest pain, unspecified (principal)
CPT/HCPCS: 93351

== ENCOUNTER → 2020-05-23 | Outpatient (CLI) | payer MEDICAID ==
--- NOTE | 2020-05-25 09:25 | MM ---
Reason for exam: screening (asymptomatic). Last mammogram was performed 1 year and 5 months ago. History: Family history of breast cancer in maternal aunt at age 71. Taking hormonal contraceptives for 14 years beginning at age 16. Physical Findings: A clinical breast exam by your physician is recommended on an annual basis and results should be correlated with mammographic findings. MG Screening Mammo w CAD Bilateral CC and MLO view(s) were taken. Prior study comparison: January 05, 2019, bilateral MG screening mammo w CAD. October 10, 2017, bilateral MG screening mammo w CAD. The breast tissue is heterogeneously dense. This may lower the sensitivity of mammography. No significant changes when compared with prior studies. ASSESSMENT: Benign, BI-RAD 2 RECOMMENDATION: Routine screening mammogram of both breasts in 1 year.
== END | disposition home or self-care (01) ==
LOC: RADMAMWWP 11:53
PROVIDERS: ATTEND Family Medicine
DX: Z12.31 Encounter for screening mammogram for malignant neoplasm of breast (principal)
CPT/HCPCS: 77067

== ENCOUNTER → 2020-07-04 | Outpatient (CLI) | payer MEDICAID ==
[2020-07-04 21:00] LABS: T4, Free (Free Thyroxine) 1.2 ng/dL (0.80-1.80)
== END | disposition home or self-care (01) ==
LOC: LABWHC1 10:34
PROVIDERS: ATTEND Internal Medicine Interventional Cardiology
DX: E03.9 Hypothyroidism, unspecified (principal)
CPT/HCPCS: 36415; 84439; 84443

== ENCOUNTER → 2021-11-08 | Outpatient (CLI) | payer MEDICAID ==
--- NOTE | 2021-11-12 09:17 | MM ---
Reason for exam: screening (asymptomatic). Last mammogram was performed 1 year and 6 months ago. History: Patient is postmenopausal. Family history of breast cancer in maternal aunt at age 71. Taking hormonal contraceptives for 14 years beginning at age 16. Physical Findings: A clinical breast exam by your physician is recommended on an annual basis and results should be correlated with mammographic findings. MG Screening Mammo w CAD Bilateral CC and MLO view(s) were taken. Prior study comparison: May 23, 2020, bilateral MG screening mammo w CAD. January 05, 2019, bilateral MG screening mammo w CAD. There are scattered fibroglandular densities. No significant changes when compared with prior studies. ASSESSMENT: Benign, BI-RAD 2 RECOMMENDATION: Routine screening mammogram of both breasts in 1 year.
== END | disposition home or self-care (01) ==
LOC: RADMAMWWP 13:18
PROVIDERS: ATTEND Family Medicine
DX: Z12.31 Encounter for screening mammogram for malignant neoplasm of breast (principal); Z78.0 Asymptomatic menopausal state; Z80.3 Family history of malignant neoplasm of breast
CPT/HCPCS: 77067

== ENCOUNTER → 2024-01-14 | Outpatient (CLI) | payer BC ==
--- NOTE | 2024-01-16 08:41 | MM ---
Reason for Exam: Screening (asymptomatic). Last mammogram was performed 1 year(s) and 1 month(s) ago. Patient History: Menarche at age 10. First Full-Term at age 21. Postmenopausal. Patient has history of breast feeding. Currently using Hormonal Contraceptives, beginning at age 16 for 14 years. Maternal aunt had breast cancer, age 71. Maternal aunt had breast cancer, age 70. Risk Values: Ynes 5 year model risk: 1.3%. NCI Lifetime model risk: 6.6%. Prior Study Comparison: 05/23/2020 Bilateral Screening Mammogram, [facility]. 11/08/2021 Bilateral Screening Mammogram, [facility]. 12/05/2022 Bilateral MG screening mammo w CAD, [facility]. Tissue Density: There are scattered areas of fibroglandular density. Findings: Analyzed By CAD. Right breast: There is no suspicious group of microcalcifications or new suspicious mass. Left breast: There is no suspicious group of microcalcifications or new suspicious mass. Overall Assessment: Negative, BI-RAD 1 Management: Screening Mammogram of both breasts in [address] [facility] will attempt to contact patient to return for supplemental views and ultrasound if indicated. Patient should continue monthly self-breast exams. A clinical breast exam by your physician is recommended on an annual basis. This exam should not preclude additional follow-up of suspicious palpable abnormalities. Note on Ynes scores and lifetime risk: 1. A Ynes score greater than 3% is considered moderate risk. If this is the case, consider specialist referral to assess eligibility for a risk reducing agent. 2. If overall lifetime risk for the development of breast cancer is 20% or higher, the patient may qualify for future screening with alternating mammogram and breast MRI. Electronically signed and approved by: Adrian Keith DO
== END | disposition home or self-care (01) ==
LOC: RADMAMWWP 10:07
PROVIDERS: ATTEND Family Medicine
DX: Z12.31 Encounter for screening mammogram for malignant neoplasm of breast (principal); Z78.0 Asymptomatic menopausal state; Z80.3 Family history of malignant neoplasm of breast
CPT/HCPCS: 77067

== ENCOUNTER → 2025-02-01 | Outpatient (CLI) | payer BC ==
--- NOTE | 2025-02-02 07:39 | MM ---
Reason for Exam: Screening (asymptomatic). Last mammogram was performed 1 year(s) and 1 month(s) ago. Patient History: Menarche at age 10. First Full-Term at age 21. Postmenopausal. Patient has history of breast feeding. Currently using Hormonal Contraceptives, beginning at age 16 for 14 years. Maternal aunt had breast cancer, age 71. Maternal aunt had breast cancer, age 70. Risk Values: Ynes 5 year model risk: 1.3%. NCI Lifetime model risk: 6.4%. Prior Study Comparison: 11/08/2021 Bilateral Screening Mammogram, [facility]. 12/05/2022 Bilateral MG screening mammo w CAD, [facility]. 01/14/2024 Bilateral MG screening mammo w CAD, [facility]. Tissue Density: There are scattered areas of fibroglandular density. Findings: Analyzed By CAD. Right breast: There is no suspicious group of microcalcifications or new suspicious mass. Left breast: There is no suspicious group of microcalcifications or new suspicious mass. Overall Assessment: Negative, BI-RAD 1 Management: Screening Mammogram of both breasts in [address] [facility] will attempt to contact patient to return for supplemental views and ultrasound if indicated. Patient should continue monthly self-breast exams. A clinical breast exam by your physician is recommended on an annual basis. This exam should not preclude additional follow-up of suspicious palpable abnormalities. Note on Ynes scores and lifetime risk: 1. A Ynes score greater than 3% is considered moderate risk. If this is the case, consider specialist referral to assess eligibility for a risk reducing agent. 2. If overall lifetime risk for the development of breast cancer is 20% or higher, the patient may qualify for future screening with alternating mammogram and breast MRI. [facility], , 02/02/2025 7:36 AM. Electronically signed and approved by: Adrian Keith DO
== END | disposition home or self-care (01) ==
LOC: RADMAMWWP 16:01
PROVIDERS: ATTEND Family Medicine
DX: Z12.31 Encounter for screening mammogram for malignant neoplasm of breast (principal); R92.323 Mammographic fibroglandular density, bilateral breasts; Z78.0 Asymptomatic menopausal state; Z80.3 Family history of malignant neoplasm of breast; Z79.3 Long term (current) use of hormonal contraceptives
CPT/HCPCS: 77067